=== PATIENT | female | born 1960 | race Caucasian/White ===

== ENCOUNTER → 2016-07-26 | Outpatient (CLI) | payer BC ==
[~2016-07-26] VITALS: Ht 167.6 cm; Wt 52.2 kg
[~2016-07-26] MED LIST: CALTRATE PLUS1 EACH PO; CRESTOR10 MG PO; MULTIPLE VITAM1 EAC1 PO; XANAX0.5 MG PO; ZOFRAN ODT8 MG PO
== END | disposition home or self-care (01) ==
LOC: AMB 09:47
DX: Z12.11 Encounter for screening for malignant neoplasm of colon (principal); D12.3 Benign neoplasm of transverse colon; D12.5 Benign neoplasm of sigmoid colon; F17.200 Nicotine dependence, unspecified, uncomplicated; Z80.3 Family history of malignant neoplasm of breast; Z80.1 Family history of malignant neoplasm of trachea, bronchus and lung; Z82.69 Family history of other diseases of the musculoskeletal system and connective tissue
CPT/HCPCS: 88305; J2250; J3010

== ENCOUNTER → 2016-09-20 | Outpatient (CLI) | payer BC ==
[~2016-09-20] VITALS: Ht 167.6 cm; Wt 54.4 kg
[~2016-09-20] MED LIST changes: +ASTAXANTHIN4 MG PO; +CALCIUM 600+D1 EACH PO; +CYANOCOBAL1000 MCG/2 IM; +MULTIVITAMIN1 EAC2 PO
== END | disposition home or self-care (01) ==
LOC: AMB 09:00
PROC: 3E0H8GC Introduction of Other Therapeutic Substance into Lower GI, Via Natural or Artificial Opening Endoscopic (ICD-10-PCS; principal; 2016-09-20)
PROC: 0DBM8ZX Excision of Descending Colon, Via Natural or Artificial Opening Endoscopic, Diagnostic (ICD-10-PCS; principal; 2016-09-20)
PROC: 0DBL8ZX Excision of Transverse Colon, Via Natural or Artificial Opening Endoscopic, Diagnostic (ICD-10-PCS; principal; 2016-09-20)
DX: Z12.11 Encounter for screening for malignant neoplasm of colon (principal); E78.00 Pure hypercholesterolemia, unspecified; F17.210 Nicotine dependence, cigarettes, uncomplicated
CPT/HCPCS: 88305; J2250